=== PATIENT | female | born 1960 ===

== ENCOUNTER 2021-11-20 08:02 | Day surgery (SDC) | payer MEDICARE ==
[~2021-11-20] VITALS: Ht 172.7 cm; Wt 101.0 kg
[~2021-11-20 08:02] MED LIST: BACLOFEN5 M1 PO; BUPR150ER PO; DIAZ10 PO; MAGNESIUM CITR100 MG PO; TRAM50 PO; Vitamin D1000 UNI1 PO
[2021-11-20] MEDS ORDERED: NAPR220 PO (08:55)
--- NOTE | 2021-11-20 14:50 | NUR ---
PT DRESSED SELF WITHOUT ISSUE, SITE UNCHANGED, IV REMOVED-CANNULA INTACT. PT HAS LEFT ARM IN SLING PER DR DURHAM'S INSTRUCTIONS.
--- NOTE | 2021-11-20 14:56 | NUR ---
PT RECEIVED DISCHARGE INSTRUCTIONS AND AFTER CARE INSTRUCTIONS; VERBALIZED GOOD UNDERSTANDING. PT LEFT FACILITY VIA W/C, CONDITION STABLE.
== END 2021-11-20 15:52 | disposition home or self-care (01) ==
LOC: MHTC 08:02
DX: I44.1 Atrioventricular block, second degree (principal); I48.0 Paroxysmal atrial fibrillation; R00.1 Bradycardia, unspecified; Z88.0 Allergy status to penicillin; Z88.5 Allergy status to narcotic agent; Z88.6 Allergy status to analgesic agent
CPT/HCPCS: 33208; 71046; 99152; 99153; C1785; C1894; C1898; J0690; J1580; J1644; J2060; J2250; J3010; J3370; J7030; J7040; Q9967

== ENCOUNTER → 2022-10-19 | Outpatient (CLI) | payer MEDICARE ==
[~2022-10-19] MED LIST changes: +NAPR220 PO
== END | disposition home or self-care (01) ==
LOC: LAB SHORT 18:56 → LAB 18:56
DX: N39.0 Urinary tract infection, site not specified (principal)
CPT/HCPCS: 87077; 87086; 87186

== ENCOUNTER 2023-10-18 10:49 | Emergency (ER) | payer MEDICARE ==
[~2023-10-18] VITALS: Ht 172.7 cm; Wt 104.3 kg
[2023-10-18] MEDS ORDERED: NITROGLYCERIN0.4 M3 SL (11:21)
[2023-10-18 12:34] LABS: BASOPHILS ABSOLUTE AUTO 0.02 K/mm3 (0.00-0.23); BASOPHILS PERCENT AUTO 1 % (0-2); EOSINOPHILS ABSOLUTE AUTO 0.17 K/mm3 (0.00-0.68); EOSINOPHILS PERCENT AUTO 4 % (0-6); IMMATURE GRAN ABSOLUTE AUTO 0.01 K/mm3 (0.00-0.10); IMMATURE GRAN PERCENT AUTO 0 % (0-1); LYMPHOCYTES ABSOLUTE AUTO 1.41 K/mm3 (0.84-5.20); LYMPHOCYTES PERCENT AUTO 35 % (21-46); MONOCYTES ABSOLUTE AUTO 0.34 K/mm3 (0.16-1.47); MONOCYTES PERCENT AUTO 9 % (4-13); Mean Corpuscular HGB Conc 32.4 g/dL (31.5-36.5); Mean Corpuscular Volume 86 fL (80-100); NEUTROPHILS ABSOLUTE AUTO 2.05 K/mm3 (1.96-9.15); NEUTROPHILS PERCENT AUTO 51 % (41-73); RDW Coefficient Variation 14.3 % (11.7-14.2); RDW Standard Deviation 45.1 fL (35.1-46.3); Red Blood Cell Count 4.28 M/mm3 (3.80-5.20)
[2023-10-18 12:38] LABS: Mean Platelet Volume 11.3 fL (9.1-12.4)
[2023-10-18 12:39] LABS: Platelet Count 222 K/mm3 (150-400)
[2023-10-18 12:45] LABS: Albumin, Blood 3.5 g/dL (3.4-5.0); Albumin/Globulin Ratio 0.9 (0.8-1.8); Bilirubin, Total 1.3 mg/dL (0.1-1.0); Calcium, Blood 8.7 mg/dL (8.5-10.1); Creatinine, Blood 0.58 mg/dL (0.40-1.00); Globulin, Blood 3.7 g/dL (2.2-4.0); Potassium, Blood 4.3 mmol/L (3.5-5.5); Total Protein, Blood 7.2 g/dL (6.4-8.2)
[2023-10-18] MEDS ORDERED: TRAM50 PO (13:47)
[2023-10-18] MEDS ORDERED: ONDA4ODT MM (13:47)
[2023-10-18 13:51] VITALS: BP 115/76
== END 2023-10-18 14:04 | disposition home or self-care (01) ==
LOC: ER 10:49
PROVIDERS: Family Medicine
DX: M79.602 Pain in left arm (principal); M54.2 Cervicalgia; R11.0 Nausea; Z88.0 Allergy status to penicillin; Z88.5 Allergy status to narcotic agent; Z88.8 Allergy status to other drugs, medicaments and biological substances; Z79.899 Other long term (current) drug therapy
CPT/HCPCS: 80053; 84484; 85025; 93005; 93010; 96374; 96375; 99284-25; J1170; J2405

== ENCOUNTER → 2024-06-05 | Outpatient (CLI) | payer MEDICARE ==
[~2024-06-05] MED LIST changes: +NITROGLYCERIN0.4 M3 SL; +ONDA4ODT MM
== END ==
LOC: LAB SHORT 09:56 → LAB 09:56
DX: N39.0 Urinary tract infection, site not specified (principal)
CPT/HCPCS: 87077; 87086; 87186

== ENCOUNTER → 2024-09-18 | Outpatient (CLI) | payer MEDICARE | END | disposition home or self-care (01) | LOC: LAB 12:25 → LAB SHORT 12:25 | DX: N39.0 Urinary tract infection, site not specified (principal) | CPT/HCPCS: 87077; 87086; 87186 ==

== ENCOUNTER → 2025-07-31 | Outpatient (CLI) | payer MEDICARE | LOC: LAB SHORT 14:59 → LAB 14:59 | DX: N39.0 Urinary tract infection, site not specified (principal) | CPT/HCPCS: 87077; 87086; 87186 ==